=== PATIENT | male | born 1970 | race Caucasian/White ===

== ENCOUNTER 2023-11-28 20:18 | Observation (INO) | payer SELFPAY ==
[2023-11-28] VITALS (8 sets, daily range): BP systolic 151–169; BP diastolic 90–107; PULSE 73–81; RESP 16–20; TEMP 36.2–36.9; O2SAT 95–98; BMI 24.4
--- NOTE | 2023-11-28 20:41 | ED_ITS ---
HPI - Abdominal Pain General Chief Complaint: Nausea/Vomiting/Diarrhea Stated Complaint: food bolus / Time Seen by Provider: 11/28/23 20:33 History of Present Illness HPI narrative: 53-year-old male with esophageal foreign body sensation, arrived POV from [facility] for possible endoscopic removal, communication with that provider with ED provider Dr. Lan here, apparently had spoken to surgery on-call, [employer] fielded a call from surgery, who requested trial of medical therapy if he still had symptoms here. Patient had been eating steak yesterday, proximally 2:00 p.m. had persisting foreign body sensation, hurts with swallowing his spit. He presented to [facility] Emergency Department, apparently no medical therapy attempted. Referred here for possible treatment/removal. He denies prior upper endoscopy or strictures or esophageal lesions. Related Data Allergies Allergy/AdvReac Type Severity Reaction Status Date / Time No Known Drug Allergies Allergy Verified 11/28/23 22:34 Review of Systems Review of Systems Narrative: see HPI Patient History Social History household members: spouse Smoking Status: Never smoker Exam Narrative Exam Narrative: GENERAL: Well-developed patient, in mild distress. Patient in some distress, spitting his secretions into a collection bottle. HEAD: Atraumatic. Normocephalic. EYES: Pupils equal round and reactive. Extraocular motions intact. No scleral icterus. No injection or drainage. ENT: Nose without bleeding, purulent drainage. Throat without erythema, tonsillar hypertrophy or exudate. Airway patent. NECK: Trachea midline. Non tender CARDIOVASCULAR: Regular rate and rhythm without murmurs, gallops, or rubs. RESPIRATORY: Clear to auscultation. Breath sounds equal bilaterally. No wheezes, rales, or rhonchi. GASTROINTESTINAL: Abdomen soft, non-tender, nondistended. EXTREMITIES: No edema or joint tenderness. BACK: Nontender without deformity or crepitance. No flank tenderness. NEURO: AOx3. Motor function grossly nonfocal SKIN: No rash or erythema of visible areas Initial Vital Signs Initial Vital Signs: Vital Signs Temperature 98.5 F 11/28/23 20:40 Pulse Rate 76 11/28/23 20:40 Respiratory Rate 18 11/28/23 20:40 Blood Pressure 167/103 H 11/28/23 20:40 Pulse Oximetry 96 11/28/23 20:40 Oxygen Delivery Method Room Air 11/28/23 20:40 Course Orders Ordered: Discontinued Medications Hydrocodone Bitart/Acetaminophen (Hydrocodone/Acet 5/325 Tablet) 1 tab PO PACUNOW PRN PRN Reason: Mild or moderate pain Glucagon (Glucagon,Human Recombinant 1 Mg/Ml Vial) 1 mg IV NOW ONE Stop: 11/28/23 20:46 Last Admin: 11/28/23 20:57 Dose: 1 mg Documented By: Lactated Ringer's (Lactated Ringers) 1,000 mls @ 42 mls/hr IV CONT NGHIA Last Infusion: 11/28/23 23:30 Dose: Infused Documented By: Admin: 11/28/23 22:51 Dose: 42 mls/hr Documented By: RAMOS Nitroglycerin (Nitroglycerin 0.4 Mg Sl Tab) 0.4 mg SL NOW ONE Stop: 11/28/23 20:46 Last Admin: 11/28/23 20:57 Dose: 0.4 mg Documented By: Ondansetron HCl (Ondansetron 4 Mg/2 Ml Inj) 4 mg IV NOW PRN PRN Reason: Nausea And Vomiting Vital Signs Vital signs: Vital Signs - 8 hr 11/28/23 20:40 11/28/23 20:57 Temperature 98.5 F Pulse Rate 76 79 Respiratory Rate 18 Blood Pressure 167/103 H 167/107 H Pulse Oximetry 96 Oxygen Delivery Method Room Air MDM - Abdominal Pain MDM Narrative Medical decision making narrative: 53-year-old male with esophageal foreign body sensation after eating steak 2:00 p.m. yesterday, referred here for possible endoscopic removal and/or medical therapy, no medical therapy has been tried thus far, patient thought maybe he had some improvement, was given effervescent mercedes romero soda, still has foreign body sensation. Trial of IV glucagon with sublingual nitroglycerin, and effervescent swallow trial. If fails and we will contact surgery for likely endoscopic removal. Trial of nitroglycerin and glucagon, then effervescent, patient had emesis, still has persisting foreign body sensation. We will call surgery. [id number], case discussed with surgery on-call Dr Morales, he will take patient to OR for endoscopic removal. OR team to be paged per ED charge nurse and/or boiler house supervisor Discharge Plan Departure Patient Disposition: Admitted to Surgery Clinical Impression: Foreign body in esophagus Admit Date/Time: 11/28/23 22:30 Admit Provider: Severo Morales
[2023-11-28] MEDS: GLUCAGON,HUMAN RECOMBINANT 1 MG/ML VIAL IV (20:57)
[2023-11-28] MEDS: NITROGLYCERIN 0.4 MG SL TAB SL (20:57)
--- NOTE | 2023-11-28 22:18 | PC.NURSE ---
Pt sitting up in [facility]. Reports that he is still occluded. Not able to swallow.
[2023-11-28] MEDS: LACTATED RINGERS 1,000 ML 42 ML IV (22:51)
--- NOTE | 2023-11-30 08:22 | PM.OP.EGD ---
Operative Date/Time/Diagnoses Date of procedure: 11/28/23 Time of procedure: 23:00 Pre-op diagnosis: Foreign body obstructing esophagus Procedure & Clinicians Surgeon: Severo Morales Procedure Notes Findings: other findings Impression: OPERATIVE / PROCEDURE NOTE PRE-OP DIAGNOSIS: Esophageal obstruction due to non chewed hot steak.. POST-OP DIAGNOSIS: Same + Per the EGD performed all the way to the 3rd portion of the duodenum: - Z-line was @ 42 cm from the superior incisors' level - No GERD stigmata noted, no obvious Hiatal Hernia, no changes suspicious Maldonado's - No gastritis - No peptic ulcer disease - No biliary reflux - Just stuck piece of unchewed meat, in the Lower esophageal sphincter. PROCEDURE(S): - EGD to the 3rd portion of the duodenum - Pushed the Foreign body piece of meat uneventfully inside the stomach. SURGEON(S): Severo Morales M.D., F.AAnnCDamion., F.I.C.S. HR SYSTEMS ANALYST(S): NONE ANESTHESIA: GET per Anaesthesia. SPECIMENS: None. ESTIMATED BLOOD LOSS: None. COMPLICATIONS: NONE CONDITION / DISPOSITION: Stable, to PACU OPERATIVE DESCRIPTION: After properly informed consent was signed by the patient, knowing all the risks, benefits, potential complications and possible alternatives of the procedure. The patient was properly identified. Tulio Albright was brought to the GI suite and after institution of general Endotracheal anesthesia in reverse Trendelenburg position, in the left lateral decubitus position, the EGD Olympus scope was placed into his mouth and under direct visualization was advanced. No reflux or laryngitis stigmata noted. The esophagus was intubated. The Z-line was noted to be at 42 cm from the superior incisor level, obstructed with a piece of unchewed meat! No hiatal hernia was identified. No changes suspicious for Maldonado esophagitis. The piece of meat was gently sequetially pushed in its entirety inside the stoamch, and the scope was passed twice after in the lower esophagus to make sure it was clear, and it was. The stomach was intubated. No gastritis was noted and no ulcers noted. No tumors, no growths, no peptic ulcer disease. The pylorus was intubated and the scope was advanced all the way to the third portion of the duodenum. No postpyloric abnormalities identified, including the ampulla and periampullary regions. The scope was retracted back into the stomach, retroflexed; Nol hiatal hernia was identified. Documentary pictures of all the above and below relevant findings were taken. The stomach was decompressed; the scope was retracted out uneventfully. The patient tolerated the procedure well without any complications and was sent to PACU in stable condition. Severo Morales MD, FACS, FICS
--- NOTE | 2023-12-26 18:51 | PM.HP.1 ---
History of Present Illness History of Present Illness Date Patient Seen: 11/28/23 Time Patient Seen: 23:00 Chief complaint: food bolus / PFSH Social History household members: spouse Smoking Status: Never smoker Meds Home Medications and Allergies Allergies Allergy/AdvReac Type Severity Reaction Status Date / Time No Known Drug Allergies Allergy Verified 11/28/23 22:34 Review of Systems Review of Systems ROS: Yes All systems reviewed with the patient and are negative except as otherwise documented Exam Vital Signs (past 8 hours): Oxygen Delivery Method Room Air Narrative Exam Narrative: NORMAL exam, but obstructed esophagus, and regurgitates the water that he drinks Assessment & Plan Assessment and plan (1) Foreign body in esophagus: Status: Acute Plan Will proceed with EGD, and clear the obstructed esophagus, right away. Time-Based Coding :: [TOTAL MINUTES] spent with patient and on the chart (including review of chart, obtaining history, exam, reviewing outside data, placing orders, documenting exam and treatment plan, and counseling patient) on [DATE].
== END 2023-11-28 23:36 | disposition home or self-care (01) ==
LOC: ED 22:23 → AC 22:34
PROVIDERS: Admitting Provider Surgery; Emergency Provider Emergency Medicine; Visit Provider Surgery
PROC: 0DJ08ZZ Inspection of Upper Intestinal Tract, Via Natural or Artificial Opening Endoscopic (ICD-10-PCS; principal; 2023-11-28 11:00)
DX: R11.11 Vomiting without nausea (principal); T17.228A Food in pharynx causing other injury, initial encounter
CPT/HCPCS: 43247; 96374; 99284; G0378; J0330; J1100; J1610; J1885; J2704; J3010